=== PATIENT | male | born 1960 | race African-American/Black ===

== ENCOUNTER 2020-02-24 14:08 | Observation (INO) | payer OTHER ==
[~2020-02-24 14:08] MED LIST: Iopamidol-370 76% 500 ML 1 ML ONE
[2020-02-24 14:45] LABS: Mean Corpuscular HGB CONC 34.1 g/dL (32.0-36.0); Mean Corpuscular Hemoglobin 32.7 pg (27.0-31.0); Mean Corpuscular Volume 95.9 fL (78.0-98.0); Mean Platelet Volume 6.5 fL (7.4-10.4); Platelet Count 208 thou/uL (130-400); RBC Distribution Width 12.1 % (11.5-14.5); Red Blood Cell (RBC) Count 3.06 mill/uL (4.70-6.10); White Blood Cell (WBC) Count 6.5 thou/uL (4.8-10.8)
--- NOTE | 2020-02-24 15:02 | RAD ---
PORTABLE CHEST 1 VIEW: DATE: 01/24/2020. TIME: 2:17 PM. HISTORY: Chest pain. COMPARISON: 03/23/2017. FINDINGS: The heart size is normal. The lungs are expanded without focal areas of consolidation, pneumothorace s, or pleural effusions. IMPRESSION: No acute process. POS: [facility]
[2020-02-24 15:06] LABS: ALT (SGPT) 20 U/L (8-55); AST (SGOT) 32 U/L (5-34); Albumin 3.7 g/dL (3.5-5.0); Alkaline Phosphatase 96 U/L (40-110); Anion Gap 15 mmol/L (10-20); BUN (Urea Nitrogen) 9 mg/dL (8.4-25.7); Bilirubin, Total 0.4 mg/dL (0.2-1.2); Calc. Creatinine Clearance 0 mL/min (70-130); Carbon Dioxide 21 mmol/L (22-29); Chloride 91 mmol/L (98-107); Estimated GFR-MDRD 79; Globulin 2.8 g/dL (2.4-3.5); Glucose 77 mg/dL (70-105); Potassium 4.1 mmol/L (3.5-5.1); Protein, Total 6.5 g/dL (6.0-8.3); Sodium 123 mmol/L (136-145)
[2020-02-24 15:10] LABS: Band 7 % (5-11); Hypochromia SLIGHT = 6-15 cells (100X) (0-5/hpf); Lymphocytes 15 % (21-51); MDiff Complete? YES; Monocytes 12 % (0-10); Neutrophil 58 % (42-75); Platelet Morphology Comment Appears Adequate; Polychromasia SLIGHT = 2-3 cells (100X) (0-2/hpf); Reactive Lymphocytes 8 % (0-10)
[2020-02-24 15:12] LABS: Bacteria/HPF None Seen HPF (None Seen); Bilirubin Negative (Negative); Blood, Urine Negative (Negative); Clarity Clear (Clear); Glucose, Urine (Dipstick) Normal (Negative); Ketone, Urine Negative (Negative); Leukocyte 25 Leu/uL (Negative); Nitrite Negative (Negative); Protein, Urine (Dipstick) Negative (Neg-Trace); RBC/HPF None Seen HPF (0-3); Specific Gravity, Urine 1.005 (1.002-1.036); Squamous Epithelial 0-3 HPF (0-3); Urobilinogen Normal mg/dL (Less than 2)
--- NOTE | 2020-02-24 15:34 | CT ---
CT head noncontrast HISTORY: Orthostatic hypotension. Dizziness. COMPARISON: 04/17/2009. FINDINGS: There is no evidence of acute intracranial hemorrhage or infarct. Mild chronic ischemic sma ll vessel disease throughout the periventricular white matter. There is no mass effect or shift of midline structures. Visualized paranasal sinuses remain well aera bety. IMPRESSION : No acute intracranial abnormalities are demonstrated.
--- NOTE | 2020-02-24 17:52 | PDOC.FPRHP ---
- History of Present Illness Chief Complaint: Presyncope History of Present Illness: Pt is a 59 yo M with HTN, HLD, and Hx of seizures for 8 years here with episode of pre-syncope when at the park. Pt reports got dizzy and almost passed out. Pt friend told him to come in because they saw his eyes roll back in his head. Pt reports drinking plenty of water. Per ER report they stated pt actually went unconcious for a brief moment. Pt reports blurry vision before the episode. Denies any headaches. Denies anybody told him he was convulsing. Denies any loss of urine or bowel movement. Reports feeling heart racing during the episode. Denies any SOB Pt has had seizures for 8 years and last seizure was 4 years ago. Pt reports blurry vision before the episdoe. Recently was started on tinazidine. He says he is taking Dilantin 100 mg TID. ED Course: In the ED, he was given 1g of Dilantin and 1L NS. His labs were remarkable for a NA of 123. - Allergies/Adverse Reactions Allergies Allergy/AdvReac Type Severity Reaction Status Date / Time No Known Drug Allergies Allergy Verified 02/24/20 20:09 - Home Medications Medication Instructions Recorded Confirmed Type Aspirin [Ecotrin Low Strength] 81 mg PO DAILY 03/23/17 02/24/20 History Phenytoin Sodium Extended 100 mg PO TID 03/23/17 02/24/20 History [Dilantin] Amlodipine [Norvasc] 10 mg PO DAILY 02/24/20 02/24/20 History Atorvastatin Calcium [Lipitor] 20 mg PO DAILY 02/24/20 02/24/20 History Gabapentin [Neurontin] 600 mg PO TID 02/24/20 02/24/20 History Hydrochlorothiazide 12.5 mg PO DAILY 02/24/20 02/24/20 History Lisinopril [Zestril] 20 mg PO DAILY 02/24/20 02/24/20 History Metoprolol Tartrate 25 mg PO DAILY 02/24/20 02/24/20 History tiZANidine HCl [Tizanidine HCl] 4 mg PO TID PRN 02/24/20 02/24/20 History Comments: The meds above are not correct. I have reviewed the medications from his clinic chart and that he had with him so below is the accurate home list. Phenytoin 100mg TID, Amlodipine 10 mg daily, HCTZ 12.5 mg daily, Lisinopril 20 mg daily, Atorvastatin 20 mg, Gabapentin 300 mg TID, Metoprolol 25 mg daily, ASA 81 mg daily. Just got tizanidine 4 mg and started taking. - History PMHx: hx seizures, HTN, HLD, Anemia, Spondylosis w/o myelopathy, lumbar region, PSH: R. knee surgery Allergies: NKDA FH: Sisters- Sickle cell disease, SH: denies smoking, drinks 2 32 oz a day, denies recreational drugs - Review of Systems General: denies: fever/chills, weight/appetite/sleep changes, night sweats Eyes: reports: vision changes (blurry vision with syncopy that resolved) ENT: denies: nasal congestion, rhinorrhea Respiratory: denies: cough, congestion, shortness of breath Cardiovascular: denies: chest pain, edema Gastrointestinal: denies: nausea, vomiting, diarrhea, constipation, abdominal pain Genitourinary: denies: dysuria Skin: denies: rashes, lesions Musculoskeletal: denies: pain, tenderness Neurological: reports: syncope. denies: numbness, seizure, weakness - Vital signs BP: 148/82 HR: 69 RR: 18 Tmax: 98.6 Pox: 100% on RA Wt: 74.8 kg - Physical Exam Constitutional: NAD, awake, alert and oriented HEENT: normocephalic and atraumatic, conjunctiva clear, no scleral icterus, MMM -HEENT: Significant horizontal nystagmus most prominent on the right. There was some subtle vertical nystagmus. Neck: supple, no LAD Heart: RRR, normal S1/S2, no murmurs/rubs/gallops, pulses present, no edema Lungs: CTAB, no respiratory distress, good air movement, no rales/rhonchi, no wheezing, no retractions Abdomen: soft, non-tender, bowel sounds present Musculoskeletal: normal structure, normal tone Neurological: no focal deficit, CN II-XII intact, normal sensation Skin: no rash/lesions, good turgor -Skin: Many SKs over chest and back. He has a large subcutaneous lipoma on his left upper back. Heme/Lymphatic: no unusual bruising or bleeding, no purpura, no petechia Psychiatric: normal mood and affect FMR H&P: Results - Labs Result Diagrams: 02/25/20 04:53 02/25/20 04:53 Lab results: WBC 6.5 thou/uL (4.8-10.8) 02/24/20 14:31 Hgb 10.0 g/dL (14.0-18.0) L 02/24/20 14:31 Hct 29.4 % (42.0-52.0) L 02/24/20 14:31 MCV 95.9 fL (78.0-98.0) 02/24/20 14:31 Plt Count 208 thou/uL (130-400) 02/24/20 14:31 Band Neuts % (Manual) 7 % (5-11) 02/24/20 14:31 Sodium 123 mmol/L (136-145) L 02/24/20 14:31 Potassium 4.1 mmol/L (3.5-5.1) 02/24/20 14:31 Chloride 91 mmol/L (98-107) L 02/24/20 14:31 Carbon Dioxide 21 mmol/L (22-29) L 02/24/20 14:31 BUN 9 mg/dL (8.4-25.7) 02/24/20 14:31 Creatinine 1.15 mg/dL (0.7-1.3) 02/24/20 14:31 Glucose 77 mg/dL (70-105) 02/24/20 14:31 Calcium 9.0 mg/dL (7.8-10.44) 02/24/20 14:31 Total Bilirubin 0.4 mg/dL (0.2-1.2) 02/24/20 14:31 AST 32 U/L (5-34) 02/24/20 14:31 ALT 20 U/L (8-55) 02/24/20 14:31 Alkaline Phosphatase 96 U/L (40-110) 02/24/20 14:31 Serum Total Protein 6.5 g/dL (6.0-8.3) 02/24/20 14:31 Albumin 3.7 g/dL (3.5-5.0) 02/24/20 14:31 Urine Ketones Negative mg/dL (Negative) 02/24/20 14:52 Urine Blood Negative (Negative) 02/24/20 14:52 Urine Nitrite Negative (Negative) 02/24/20 14:52 Ur Leukocyte Esterase 25 Brock/uL (Negative) 02/24/20 14:52 Urine RBC None Seen HPF (0-3) 02/24/20 14:52 Urine WBC 4-6 HPF (0-3) A 02/24/20 14:52 Ur Squamous Epith Cells 0-3 HPF (0-3) 02/24/20 14:52 Urine Bacteria None Seen HPF (None Seen) 02/24/20 14:52 - EKG Interpretation EKG: Normal sinus rhythm with biphasic T waves in V2, V3 - Radiology Interpretation Chest x-ray Status: image reviewed by me, report reviewed by me Additional comment: No acute process CT scan - head Status: image reviewed by me, report reviewed by me Additional comment: No acute intracranial abnormalities are demonstrated FMR H&P: A/P - Plan Pt is a 59 yo M with HTN, HLD, and Hx of seizures for 8 years here with episode of pre-syncope when [place] the park. 1. Syncopy vs. Seizure No biting his tongue or bowel/bladder incontinence * Prolactin ordered * Orthostatics ordered * MRI ordered due to horizontal nystagmus * CTA of neck ordered to check for stenosis * ECHO ordered due to hx of HTN may be causing vasovagal symptoms 2. Hx of Seizures Pt states he is taking his dilantin 100 mg TID * Dilatin level < 1.8 * Given 1g of Dilantin in the ED * Will continue home dilatin * Consider increasing 3. Stroke R/o Pt had nystagmus noted above. Pt had vision changes prior to syncopal episode No other residual focal neuro defecit noted * MRI and CTA ordered. * Increased Atorvastatin dose to 40 mg * Neuro consulted 4. Chest Pain Trop: 0.011 and reported heart beating fast after episode. * Echo ordered * Will trend trops * Stress test tomorrow 5. HTN Continue home meds: Amlodipine 10 mg daily, HCTZ 12.5 mg daily, Lisinopril 20 mg daily, Metoprolol 25 mg daily, ASA 81 mg daily * May have some HF will correlate with ECHO 6. HLD Continue home meds:Atorvastatin 20 mg Code Status: Full Diet: HHLSo > NPO Midnight IVF: SL DVT PPx: Lovenox GI PPx: None PCP: CATALINA Harmon Dispo: Admit to stroke obs for r/o of stroke vs. syncopy and to work up chest pain. FMR H&P: Upper Level - Pertinent history I was present with the journalism internship. I scribed the above document. I made edits above as needed. See above for details. Pt reported to us during HPI of more pre- syncopal episode. But reviewed ER hx and what was reported to them appears to be more of syncopal episode. Reported eyes rolled back in head and lost conciousness for a brief moment. - Pertinent findings Pt had horizontal and maybe some vertical nystagmus noted on H-eye test. Otherwise CN 2-12 were grossly normal. strength was 5/5 in upper and lower extremities. No other gross focal neuro defecit noted. Cardio: RRR, no murmurs or gallops Resp: CTA-B, no wheezes or crackles - Plan Date/Time: 02/24/20 1752 I, Nathaniel Peñaloza, PGY-3 have evaluated this patient and agree with findings/ plan as outlined by journalism internship resident. Pertinent changes/additions are listed here. I reviewed and made edits to the above plan as needed. See above for details. At this time we are adimitiing pt for syncope workup with possible concern for stroke and chest pain r/o. Pt had nystagmus noted on neuro exam. Pt had brief loss of conciousness with reported chest pain afterwords. Pt has seizure hx too with low level of his phenytoin. Will want to adjust dosage. See above for detailed plan. Addendum - Attending - Attending Attestation Date/Time: 02/25/20 0647 I personally evaluated the patient and discussed the management with Dr. Constantino Stover on 02/24/2020 I agree with the History, Examination, Assessment and Plan documented above with any addition or exceptions noted below- 59 yo M with HTN, HLD, and seizure disorder for 8 years presents with episode of pre-syncope when at the park. Pt reports got dizzy and almost passed out. Pt friend told him to come in because they saw his eyes roll back in his head. Pt reports drinking plenty of water. Per ER report they stated pt actually went unconcious for a brief moment. Pt reports blurry vision before the episode. Denies any headaches. Denies anybody told him he was convulsing. Denies any loss of urine or bowel movement. Reports feeling heart racing during the episode. Denies any SOB or CP. PMH/PSH/Meds/SH reviewed and agree with resident's documentation. Afebrile BP135/63 P67 R18 Exam repeated by me and agree with resident's documentation. Labs: WBC=6.5, H/H= 10/28.4, Wpb=904, Um=758, K=4.1, Cl=91, CO2=21, BUN/Cr=9/1.15, Gluc=77 dilantin <1.8, AST/ALT=32/20. A/P: 1) Near-syncope/syncope - Place in obs. Will check orthostatic vitals. Plan to evaluate echo and possible stress test. 2) Mild hyponatremia - will check urine osm, urine Na and serum osm. Recheck basmet in AM. 3) Seizure d/o- subtherapeutic on dilantin; loaded in ER; restart on home dose.
[2020-02-24] MEDS ORDERED: Acetaminophen 650 MG Suppository PR PRN (18:17)
[2020-02-24] MEDS ORDERED: Ondansetron ODT 4 MG TAB PO PRN (18:17)
[2020-02-24] MEDS ORDERED: Calcium Carbonate 500 MG ChewTAB PO PRN (18:17)
[2020-02-24] MEDS ORDERED: Ondansetron PF 4 MG/2 ML Vial IVP PRN (18:17)
[2020-02-24] MEDS ORDERED: Acetaminophen 325 MG TAB PO PRN (18:17)
[2020-02-24] MEDS ORDERED: Enoxaparin Sodium 40 MG/0.4 ML SYRINGE SC SCH (18:45)
[2020-02-24 19:03] LABS: Troponin I 0.013 ng/mL (< 0.028)
[2020-02-24 19:22] VITALS: BMI 23.6
[2020-02-24] MEDS: Atorvastatin Calcium 40 MG TAB PO SCH (21:29)
[2020-02-24 22:01] LABS: Troponin I 0.012 ng/mL (< 0.028)
--- NOTE | 2020-02-24 22:03 | CT ---
CT ANGIOGRAM HEAD AND NECK: 02/24/20 COMPARISON: None. HISTORY: Lightheaded. TECHNIQUE: Axial CT imaging at 1.25 mm intervals obtained from the vertex through the lung apices with IV contra st using CT angiogram protocol. Coronal and sagittal 3D reformatted imaging obtained. FINDINGS: The visualized lung apices are unremarkable. The paranasal sinuses and mastoid air cells are grossly unremarkable. Orbits/globes appear normal. Th e retroantral fat and parapharyngeal fat appears clear bilaterally. The parotid glands and submandibu lar glands appear grossly unremarkable bilaterally. The tonsillar pillars, epiglottis and pre-epiglottic fat, hyoid bone, thyroid cartilage, cricoid cart ilage, level of the glottis, and thyroid gland demonstrate no acute findings. The origin of the innominate artery, left common carotid artery, left subclavian artery, right common carotid artery, right subclavian artery and bilateral vertebral arteries appears unremarkable. Bilateral vertebral arteries appear grossly unremarkable. On the basis of NASCET criteria, there is no hemodynamically significant stenosis seen involving the common carotid artery, or the internal carotid artery on either size. There is partially calcified at herosclerotic plaque involving the distal CCA and proximal ICA bilaterally. The basilar artery and its branches are patent. No saccular aneurysm, high grade stenosis or vascular occlusion is seen involving the posterior circulation. The A1 segment, the M1 segment, the MCA bifurcation, and the ICA bifurcation appears unremarkable moses aterally. Distal MCA branches and distal BREANN branches appear grossly unremarkable. There is no saccul ar aneurysm, high grade stenosis or vascular occlusion seen involving the anterior circulation. Review of the osseous structures demonstrate no worrisome lytic or blastic bone lesion. There is mult ilevel cervical spine disc space narrowing with anterior osteophyte formation and bilateral facet hyp ertrophy. IMPRESSION: Numerous incidental findings as above. No hemodynamically significant stenosis involving the arterial structures of the neck on the basis of NASCET criteria. No saccular aneurysm, high grade stenosis or vascular occlusion of the intracranial arterial structures seen.
[2020-02-25 00:44] LABS: Amphetamine Not Detected (NotDetected); Barbiturates Screen Detected (NotDetected); Benzodiazepine Screen Not Detected (NotDetected); Cocaine Metabolite Screen Not Detected (NotDetected); Medtox Control Line Valid? VALID (VALID); Medtox Reader # READER 4; Methadone Not Detected (NotDetected); Methamphetamine Not Detected (NotDetected); Opiate Screen Not Detected (NotDetected); Oxycodone Screen Not Detected (NotDetected); Phencyclidine (PCP) Not Detected (NotDetected); THC/Cannabinoid Screen Not Detected (NotDetected); Tricyclic Screen Not Detected (NotDetected)
--- NOTE | 2020-02-25 05:28 | PDOC.FM ---
- Subjective Subjective: Patient doing well this morning. Denies chest pain. Denies feelings of light- headedness. Discussed plans of stress test and further imaging today, patient agreeable. - Objective Vital Signs & Weight: Vital Signs (12 hours) Temp Pulse Resp BP Pulse Ox 02/25/20 03:54 98.8 F 67 18 135/63 97 02/24/20 23:54 98.1 F 64 18 129/62 100 02/24/20 18:45 98.4 F 71 18 157/71 H 100 Weight Weight 76.975 kg Result Diagrams: 02/25/20 04:53 02/25/20 04:53 Phys Exam - Physical Examination Constitutional: NAD HEENT: moist MMs vertical nystagmus Neck: supple, full ROM Respiratory: no wheezing, clear to auscultation bilateral Cardiovascular: RRR, no significant murmur Gastrointestinal: soft, non-tender Musculoskeletal: no edema Neurological: normal sensation, moves all 4 limbs Psychiatric: normal affect, A&O x 3 Skin: no rash, normal turgor Dx/Plan (1) Chest pain Code(s): R07.9 - CHEST PAIN, UNSPECIFIED Status: Acute (2) Hyperlipidemia Code(s): E78.5 - HYPERLIPIDEMIA, UNSPECIFIED Status: Acute (3) Anemia Code(s): D64.9 - ANEMIA, UNSPECIFIED Status: Chronic Qualifiers: Anemia type: unspecified type Qualified Code(s): D64.9 - Anemia, unspecified (4) Epilepsy Code(s): G40.909 - EPILEPSY, UNSP, NOT INTRACTABLE, WITHOUT STATUS EPILEPTICUS Status: Chronic (5) Hypertension Code(s): I10 - ESSENTIAL (PRIMARY) HYPERTENSION Status: Chronic Qualifiers: Hypertension type: essential hypertension Qualified Code(s): I10 - Essential (primary) hypertension - Plan Plan: Pt is a 59 yo M with HTN, HLD, and Hx of seizures for 8 years here with episode of pre-syncope when at the park. #Syncope vs. Seizure -No biting his tongue or bowel/bladder incontinence -Orthostatics ordered -MRI pending -CTA of neck neg for significant stenosis -Echo pending #Hx of Seizures -Pt states he is taking his dilantin 100 mg TID -Dilatin level < 1.8 -Given 1g of Dilantin in the ED -Will continue home dilatin -Consider increasing, neuro consulted, appreciate recs #Stroke R/o -Pt had nystagmus prior to syncopal episode -No other residual focal neuro defecits -MRI pending -CTA neg -Atorvastatin increased to 40 mg -Neuro consulted, appreciate recs #Chest Pain -Troponins neg x3 -Patient denies chest pain this am -Echo pending -Stress test today #HTN -holding home meds while r/o stroke -Home meds: Amlodipine 10 mg daily, HCTZ 12.5 mg daily, Lisinopril 20 mg daily, Metoprolol 25 mg daily, ASA 81 mg daily -echo pending #HLD -increase atorvastatin to 40mg Code Status: Full Diet: NPO for stress test IVF: SL DVT PPx: Lovenox GI PPx: None PCP: CATALINA Harmon Dispo: Admitted to stroke obs for r/o of stroke vs. syncope and to work up chest pain. Neurology consulted, appreciate recs Addendum - Attending - Attending Attestation Date/Time: 02/25/20 4269 I personally evaluated the patient and discussed the management with Dr. Murphy. I agree with the History, Examination, Assessment and Plan documented above with any addition or exceptions noted below. NM stress, MRI, neuro recs. Likely d/c this afternoon
[2020-02-25 06:14] LABS: ALT (SGPT) 16 U/L (8-55); AST (SGOT) 24 U/L (5-34); Albumin 3.6 g/dL (3.5-5.0); Alkaline Phosphatase 86 U/L (40-110); Anion Gap 13 mmol/L (10-20); BUN (Urea Nitrogen) 9 mg/dL (8.4-25.7); Bilirubin, Total 0.2 mg/dL (0.2-1.2); Calc. Creatinine Clearance 89 mL/min (70-130); Calcium 8.7 mg/dL (7.8-10.44); Carbon Dioxide 24 mmol/L (22-29); Chloride 100 mmol/L (98-107); Cholesterol 210 mg/dl (< 200 Desired); Estimated GFR-MDRD Greater than 90; Globulin 2.9 g/dL (2.4-3.5); Glucose 70 mg/dL (70-105); HDL Cholesterol 105 mg/dL (>60 Neg Risk); LDL Cholesterol, Calculated 96 mg/dL; Potassium 4.4 mmol/L (3.5-5.1); Protein, Total 6.5 g/dL (6.0-8.3); Sodium 133 mmol/L (136-145); Triglycerides 43 mg/dL (Less than 150)
[2020-02-25 06:28] LABS: Hemoglobin 10.8 g/dL (14.0-18.0); Mean Corpuscular HGB CONC 33.7 g/dL (32.0-36.0); Mean Corpuscular Hemoglobin 32.6 pg (27.0-31.0); Mean Corpuscular Volume 96.7 fL (78.0-98.0); Mean Platelet Volume 6.9 fL (7.4-10.4); Platelet Count 216 thou/uL (130-400); RBC Distribution Width 12.2 % (11.5-14.5); Red Blood Cell (RBC) Count 3.31 mill/uL (4.70-6.10); White Blood Cell (WBC) Count 4.9 thou/uL (4.8-10.8)
[2020-02-25 06:54] LABS: Eosinophils 1 % (0-10); Lymphocytes 35 % (21-51); MDiff Complete? YES; Monocytes 11 % (0-10); Neutrophil 51 % (42-75); Reactive Lymphocytes 2 % (0-10)
[2020-02-25] MEDS: Aspirin 81 mg Enteric Coated Tablet PO SCH (08:51)
[2020-02-25] MEDS: Enoxaparin Sodium 40 MG/0.4 ML SYRINGE SC SCH (08:51)
[2020-02-25] MEDS ORDERED: ADENOSINE 60 MG/20 ML VIAL ONE (09:58)
[2020-02-25] MEDS ORDERED: Magnevist 469MG/ML 20 ML VIAL ONE (10:57)
--- NOTE | 2020-02-25 12:56 | CON ---
NEUROLOGY CONSULTATION DATE OF CONSULTATION: 02/25/2020 REASON FOR CONSULTATION: Episode of presyncope. HISTORY OF PRESENT ILLNESS: Mr. Viera is a 59-year-old pleasant male with a history significant for hypertension, hyperlipidemia, and seizure disorder on Dilantin for the last eight years, presented with an episode of presyncope. According to the patient, he was at the park and went to the restroom and at that time he became dizzy and his eyes rolled backward and passed out for a brief movement. The patient denies any focal weakness, focal paresthesias, nausea, vomiting, headache, chest pain, dizziness, antibiotic vertigo, loss of vision, tinnitus, any abnormal voluntary movement, seizure activity, bowel or bladder incontinence associated with the episode. The patient has been compliant on Dilantin monotherapy and his last seizure was four years ago. He takes Dilantin 100 mg three times daily. In the emergency room, Dilantin level was checked, which was subtherapeutic, so he was given a load of 1 g of Dilantin. The rest of the labs were unremarkable except for hyponatremia 123. - Review of Systems General: denies: fever/chills, weight/appetite/sleep changes, night sweats Eyes: reports: vision changes ENT: denies: nasal congestion, rhinorrhea Respiratory: denies: cough, congestion, shortness of breath Cardiovascular: denies: chest pain, edema Gastrointestinal: denies: nausea, vomiting, diarrhea, constipation, abdominal pain Genitourinary: denies: dysuria Skin: denies: rashes, lesions Musculoskeletal: denies: pain, tenderness Neurological: reports: syncope. denies: numbness, seizure, weakness PAST MEDICAL HISTORY: Seizure disorder, hypertension, hyperlipidemia, anemia, spondylosis. PAST SURGICAL HISTORY: Right knee surgery. FAMILY HISTORY: The sister has sickle cell disease. SOCIAL HISTORY: Denies smoking, drinks 32 ounce of alcohol a day. Denies illegal drug use. Allergies/Adverse Reactions Allergies Allergy/AdvReac Type Severity Reaction Status Date / Time No Known Drug Allergies Allergy Verified 02/24/20 20:09 - Home Medications Medication Instructions Recorded Confirmed Type Aspirin [Ecotrin Low Strength] 81 mg PO DAILY 03/23/17 02/24/20 History Phenytoin Sodium Extended 100 mg PO TID 03/23/17 02/24/20 History [Dilantin] Amlodipine [Norvasc] 10 mg PO DAILY 02/24/20 02/24/20 History Atorvastatin Calcium [Lipitor] 20 mg PO DAILY 02/24/20 02/24/20 History Gabapentin [Neurontin] 600 mg PO TID 02/24/20 02/24/20 History Hydrochlorothiazide 12.5 mg PO DAILY 02/24/20 02/24/20 History Lisinopril [Zestril] 20 mg PO DAILY 02/24/20 02/24/20 History Metoprolol Tartrate 25 mg PO DAILY 02/24/20 02/24/20 History tiZANidine HCl [Tizanidine HCl] 4 mg PO TID PRN 02/24/20 02/24/20 History - Objective Vital Signs & Weight: Vital Signs (12 hours) Temp Pulse Resp BP Pulse Ox 02/25/20 03:54 98.8 F 67 18 135/63 97 02/24/20 23:54 98.1 F 64 18 129/62 100 02/24/20 18:45 98.4 F 71 18 157/71 H 100 Weight Weight 76.975 kg - Physical Exam Constitutional: NAD, awake, alert and oriented HEENT: normocephalic and atraumatic, conjunctiva clear, no scleral icterus, MMM -HEENT: Significant horizontal nystagmus most prominent on the right. There was some subtle vertical nystagmus. Neck: supple, no LAD Heart: RRR, normal S1/S2, no murmurs/rubs/gallops, pulses present, no edema Lungs: CTAB, no respiratory distress, good air movement, no rales/rhonchi, no wheezing, no retractions Abdomen: soft, non-tender, bowel sounds present Musculoskeletal: normal structure, normal tone Neurological: Mental status; the patient is alert and oriented to person, place , and time. Speech is clear. Motor, muscle tone and bulk are normal. Strength 5/5 bilaterally. Cranial nerves 2 through 12 intact. Sensory intact. Cerebellar, finger-nose testing intact. Gait deferred due to patient's safety reasons. Reflexes symmetric bilaterally. 02/25/20 04:53 Lab results: WBC 6.5 thou/uL (4.8-10.8) 02/24/20 14:31 Hgb 10.0 g/dL (14.0-18.0) L 02/24/20 14:31 Hct 29.4 % (42.0-52.0) L 02/24/20 14:31 MCV 95.9 fL (78.0-98.0) 02/24/20 14:31 Plt Count 208 thou/uL (130-400) 02/24/20 14:31 Band Neuts % (Manual) 7 % (5-11) 02/24/20 14:31 Sodium 123 mmol/L (136-145) L 02/24/20 14:31 Potassium 4.1 mmol/L (3.5-5.1) 02/24/20 14:31 Chloride 91 mmol/L (98-107) L 02/24/20 14:31 Carbon Dioxide 21 mmol/L (22-29) L 02/24/20 14:31 BUN 9 mg/dL (8.4-25.7) 02/24/20 14:31 Creatinine 1.15 mg/dL (0.7-1.3) 02/24/20 14:31 Glucose 77 mg/dL (70-105) 02/24/20 14:31 Calcium 9.0 mg/dL (7.8-10.44) 02/24/20 14:31 Total Bilirubin 0.4 mg/dL (0.2-1.2) 02/24/20 14:31 AST 32 U/L (5-34) 02/24/20 14:31 ALT 20 U/L (8-55) 02/24/20 14:31 Alkaline Phosphatase 96 U/L (40-110) 02/24/20 14:31 Serum Total Protein 6.5 g/dL (6.0-8.3) 02/24/20 14:31 Albumin 3.7 g/dL (3.5-5.0) 02/24/20 14:31 Urine Ketones Negative mg/dL (Negative) 02/24/20 14:52 Urine Blood Negative (Negative) 02/24/20 14:52 Urine Nitrite Negative (Negative) 02/24/20 14:52 Ur Leukocyte Esterase 25 Brock/uL (Negative) 02/24/20 14:52 Urine RBC None Seen HPF (0-3) 02/24/20 14:52 Urine WBC 4-6 HPF (0-3) A 02/24/20 14:52 Ur Squamous Epith Cells 0-3 HPF (0-3) 02/24/20 14:52 Urine Bacteria None Seen HPF (None Seen) 02/24/20 14:52 - EKG Interpretation EKG: Normal sinus rhythm with biphasic T waves in V2, V3 - Radiology Interpretation Chest x-ray Status: image reviewed by me, report reviewed by me Additional comment: No acute process CT scan - head Status: image reviewed by me, report reviewed by me Additional comment: No acute intracranial abnormalities are demonstrated ASSESSMENT AND PLAN: Mr. Viera is a 59-year-old male with hypertension, hyperlipidemia, seizure disorder, presented with an episode of brief passing out. The history does not seem to be consistent with seizure; however, his Dilantin level is subtherapeutic. According to the patient, he has been compliant with medicine. Consider changing dose of Dilantin from 100 mg three times a day to 330 mg at night to ensure compliance, the increment of 30 mg was done since Dilantin has a nonlinear kinetics and there is a concern about Dilantin toxicity. Consider taking supplemental calcium and vitamin D because of risk for osteoporosis associated with Dilantin. Recommend MRI to rule out acute intracranial pathology. Recommend CTA of the neck and 2D echo to rule out cardiac cause. Monitor blood pressure and strict control of blood glucose, check lipid panel, check fasting lipid profile, TSH, and hemoglobin A1c. Stress test completed. We will follow up on the results. Neuro checks every 4 hours. Continue home medications. Continue aspirin and statin for secondary stroke prevention. Recommend increasing atorvastatin to 40 mg. Continue medical management per primary team. We will continue to follow. Thank you for the consult. Job ID: [id number] WANG
--- NOTE | 2020-02-25 13:40 | NM ---
MYOCARDIAL PERFUSION SCAN WITH SPECT IMAGIN02/25/20 HISTORY: Chest pain. Examination is performed using 33 millicuries of 99m technetium Sestamibi on the stress and 10.3 mill icuries on the resting images. This shows an area of ischemic change involving the anterior wall near the apex. Wall motion: Symmetric contractility to the ventricles noted. Left ventricular ejection fraction: Calculated left ventricular ejection fraction is 58%. IMPRESSION: Area of some mild ischemic change involving the anterior wall near the apex. POS: [facility]
[2020-02-25] MEDS: Atorvastatin Calcium 40 MG TAB PO SCH (20:58)
--- NOTE | 2020-02-26 06:05 | PDOC.FM ---
- Subjective Subjective: Patient doing well this morning. Denies chest pain. Discussed plans of talking with cardiology today and changing dilating regimen to 330mg qhs. Patient agreeable with plan of care. - Objective Vital Signs & Weight: Vital Signs (12 hours) Temp Pulse Resp BP Pulse Ox 02/26/20 03:36 98.3 F 63 20 126/64 99 02/25/20 23:35 98.3 F 63 20 154/67 H 100 02/25/20 20:52 98.4 F 66 16 119/60 99 Weight Weight 76.975 kg I&O: 02/24/20 02/25/20 02/26/20 06:59 06:59 06:59 Intake Total 250 240 Output Total 1750 1850 Balance -1500 -1610 Result Diagrams: 02/25/20 04:53 02/26/20 06:07 Phys Exam - Physical Examination Constitutional: NAD HEENT: moist MMs, sclera anicteric Neck: supple, full ROM Respiratory: no wheezing, clear to auscultation bilateral Cardiovascular: RRR, no significant murmur Gastrointestinal: soft, non-tender Musculoskeletal: no edema, pulses present Neurological: non-focal, moves all 4 limbs Psychiatric: normal affect, A&O x 3 Dx/Plan (1) Chest pain Code(s): R07.9 - CHEST PAIN, UNSPECIFIED Status: Acute (2) Hyperlipidemia Code(s): E78.5 - HYPERLIPIDEMIA, UNSPECIFIED Status: Acute (3) Anemia Code(s): D64.9 - ANEMIA, UNSPECIFIED Status: Chronic Qualifiers: Anemia type: unspecified type Qualified Code(s): D64.9 - Anemia, unspecified (4) Epilepsy Code(s): G40.909 - EPILEPSY, UNSP, NOT INTRACTABLE, WITHOUT STATUS EPILEPTICUS Status: Chronic (5) Hypertension Code(s): I10 - ESSENTIAL (PRIMARY) HYPERTENSION Status: Chronic Qualifiers: Hypertension type: essential hypertension Qualified Code(s): I10 - Essential (primary) hypertension - Plan Plan: Pt is a 59 yo M with HTN, HLD, and Hx of seizures for 8 years here with episode of pre[place]syncope [place] the park. #Syncope vs. Seizure -No biting his tongue or bowel/bladder incontinence -Orthostatics ordered: positive -MRI pending -CTA of neck neg for significant stenosis -Echo pending #Hx of Seizures -Pt states he is taking his dilantin 100 mg TID -Dilatin level < 1.8 -Given 1g of Dilantin in the ED -Home dilatin increased from 100mg TID to 330mg qhs -neuro consulted, appreciate recs #Stroke R/o -Pt had nystagmus prior to syncopal episode -No other residual focal neuro defecits -MRI pending -CTA neg -Atorvastatin increased to 40 mg -Neuro consulted, appreciate recs #Chest Pain -Troponins neg x3 -Patient denies chest pain this am -Echo pending -Stress test: mild ischemic changes anterior wall near the apex -cardiology consult today #HTN -holding home meds while r/o stroke -Home meds: Amlodipine 10 mg daily, HCTZ 12.5 mg daily, Lisinopril 20 mg daily, Metoprolol 25 mg daily, ASA 81 mg daily -echo pending #HLD -increase atorvastatin to 40mg Diet: NPO for cards consult IVF: SL DVT PPx: Lovenox GI PPx: None PCP: CATALINA Harmon Code Status: Full Dispo: Admitted to stroke obs for r/o of stroke. Neurology consulted, appreciate recs. Cardiology consult today for ischemic changes seen on stress test, appreciate recs. Addendum - Attending - Attending Attestation Date/Time: 02/26/20 3046 I personally evaluated the patient and discussed the management with Dr. Murphy. I agree with the History, Examination, Assessment and Plan documented above with any addition or exceptions noted below. Reversible ischemia on NM Stress. MRI pending. Cards to evaluate today. Dispo pending recs and MRI report.
[2020-02-26 06:28] LABS: Anion Gap 11 mmol/L (10-20); BUN (Urea Nitrogen) 10 mg/dL (8.4-25.7); Calc. Creatinine Clearance 79 mL/min (70-130); Carbon Dioxide 26 mmol/L (22-29); Chloride 100 mmol/L (98-107); Estimated GFR-MDRD 82; Glucose 86 mg/dL (70-105); Potassium 4.2 mmol/L (3.5-5.1); Sodium 133 mmol/L (136-145)
[2020-02-26 06:32] LABS: Hemoglobin A1c 4.6 % (4.0-6.0)
[2020-02-26] MEDS: Aspirin 81 mg Enteric Coated Tablet PO SCH (10:49)
[2020-02-26] MEDS: Enoxaparin Sodium 40 MG/0.4 ML SYRINGE SC SCH (10:49)
--- NOTE | 2020-02-26 12:56 | MRI ---
MRI BRAIN WITH AND WITHOUT CONTRAST: INDICATIONS: Question CVA. History of prior seizures. CORRELATION: CT head from 02/24/20, which showed no acute process. FINDINGS: The ventricles have normal size and position. There is no evidence of restricted diffusion. There is no evidence of mass or edema. There are white matter hyperintensities seen on the FLAIR sequence in the periventricular white matte r, most consistent with mild chronic ischemic white matter change. No abnormal enhancement. The hippocampal formations are symmetric. Intracranial internal carotid arteries, cerebral arteries and basilar arteries show flow voids. The d ural venous sinuses appear patent. The paranasal sinuses appear clear with very mild mucosal edema in the maxillary sinuses. There is a focus of high T2 signal seen in the petrous on left, medially, suggesting mucosal thickeni ng in a petrous air cell, however this focus of signal abnormality, measuring approximately 1.3 cm, d oes appear to show enhancement on the post contrast imaging and therefore a soft tissue mass cannot b e excluded. This region was not imaged on recent CT through the base of skull on 02/24/20. No other abnormality identified. IMPRESSION: 1. No acute intracranial process. 2. Mild chronic ischemic white matter changes noted. 3. Question area of high T2 signal in the superior left petrous medially noted adjacent to the clivu s on the left. This probably represents mucosal edema in a petrous air cell. This signal abnormality does appear to show enhancement on post contrast images. CT sinuses is recommended to assess this reg ion on CT scan. POS: AGW
--- NOTE | 2020-02-26 19:59 | CON ---
DATE OF CONSULTATION: HISTORY OF PRESENT ILLNESS: Lauri Viera is a 59-year-old black male, admitted with a near-syncopal event. He was first evaluated by Dr. House in 02/2016 for episode of chest discomfort. This was after being hospitalized twice with chest pain. He underwent cardiac catheterization, which revealed ejection fraction of 50% to 55% with normal coronary arteries. He is continued to be followed by Dr. House for moderate aortic insufficiency. On 01/23/2020 at his last visit via telephone due to COVID, he was asymptomatic at that time. His last echocardiogram in the office was 11/30/2019, which revealed ejection fraction of 55% to 60% with evidence for diastolic dysfunction, moderate aortic insufficiency, moderate mitral regurgitation, and mild tricuspid regurgitation. Mr. Viera denies any problems with chest discomfort or shortness of breath. He was admitted 2 days ago with an episode of presyncope. He became dizzy, fell to his knees, but apparently never was totally unconscious and never did fall completely to the ground. He had no tonic-clonic movements or bowel or urine incontinence. He does have history of seizure disorder. His EKG showed inverted T-waves V1-V3 with biphasic T-wave in V2. In reviewing the EKGs from 2019 and 2016, this is a new finding. He underwent adenosine Cardiolite testing, which revealed mild ischemic changes involving the anterior wall near the apex. PAST MEDICAL HISTORY: 1. Seizure disorder. 2. Hypertension. 3. Asthma. 4. Hyperlipidemia. 5. 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 6.Moderate aortic insufficiency. OPERATIONS: 1. Knee surgery. 2. Hernia surgery. MEDICATIONS: 1. Amlodipine 10 mg daily. 2. Aspirin 81 daily. 3. Atorvastatin 20 nightly. 4. Neurontin 600 mg t.i.d. 5. Hydrochlorothiazide 12.5 daily. 6. Lisinopril 20 daily. 7. Metoprolol 25 daily. 8. Dilantin 100 mg t.i.d. 9. Tizanidine 4 mg t.i.d. p.r.n. ALLERGIES: NONE. SOCIAL HISTORY: He does not smoke. Drinks two 32-ounce beers a day. REVIEW OF SYSTEMS: Ten-point review of systems is unremarkable. PHYSICAL EXAMINATION: VITAL SIGNS: Blood pressure 146/65 and pulse of 61. HEENT: PERRL. NECK: Supple. CHEST: Clear. CARDIAC: S1 and S2 are normal without any S3, S4, or murmurs. ABDOMEN: Normal bowel sounds without tenderness or organomegaly. EXTREMITIES: No clubbing, cyanosis, or edema. NEUROLOGIC: Grossly intact. SKIN: Warm and dry. IMPRESSION: 1. Episode of presyncope. From his description, it does not sound as if he became unresponsive with this. He just became dizzy and fell to his knees. 2. History of seizure disorder. 3. New EKG changes with inverted T-wave V1-V3 and a biphasic T-wave in V2 as well. He also has finding of distal anterior ischemia near the apex on Cardiolite. These are new EKG changes. 4. History of normal coronary arteries in 2016. 5. Hypertension. 6. Hyperlipidemia. 7. EtOH use. 8. History of asthma. 9. Moderate aortic insufficiency PLAN: The situation was discussed with the patient. He does have new changes on his EKG and now Cardiolite that shows anterior ischemia. Consideration will be given to repeat cardiac catheterization to further evaluate this. The patient will be seen by his usual marketing sales manager, Dr. House, in the morning. Job ID: [id number] [facility]
[2020-02-26] MEDS: Atorvastatin Calcium 40 MG TAB PO SCH (21:46)
[2020-02-26] MEDS: Gabapentin 300 MG CAP PO SCH (21:46)
--- NOTE | 2020-02-27 08:44 | PDOC.FM ---
- Subjective Subjective: Patient resting comfortably in bed this morning. Denies any complaints including no chest pain, SOB, dizziness, pre-syncope. Patient is due to have a heart cath with Dr. House this morning. - Objective MAR Reviewed: Yes Vital Signs & Weight: Vital Signs (12 hours) Temp Pulse Resp BP Pulse Ox 02/27/20 07:38 98.6 F 63 16 164/73 H 99 02/27/20 04:00 97.5 F L 74 16 131/68 98 02/27/20 00:00 98.2 F 70 18 151/71 H 99 Weight Weight 76.975 kg I&O: 02/26/20 02/27/20 02/28/20 06:59 06:59 06:59 Intake Total 240 1310 Output Total 1850 2450 100 Balance -1610 -1140 -100 Result Diagrams: 02/25/20 04:53 02/26/20 06:07 Phys Exam - Physical Examination Constitutional: NAD HEENT: moist MMs, sclera anicteric Neck: no JVD, supple, full ROM Respiratory: no wheezing, clear to auscultation bilateral Cardiovascular: RRR, no significant murmur Gastrointestinal: soft, no distention, positive bowel sounds Musculoskeletal: no edema, pulses present Neurological: normal sensation, moves all 4 limbs Psychiatric: normal affect, A&O x 3 Dx/Plan (1) Hyponatremia Code(s): E87.1 - HYPO-OSMOLALITY AND HYPONATREMIA Status: Acute (2) Seizure disorder Code(s): G40.909 - EPILEPSY, UNSP, NOT INTRACTABLE, WITHOUT STATUS EPILEPTICUS Status: Acute (3) Chest pain Code(s): R07.9 - CHEST PAIN, UNSPECIFIED Status: Acute Qualifiers: Chest pain type: chest pain due to myocardial ischemia Ischemic chest pain type: unspecified angina pectoris type Qualified Code(s): I25.9 - Chronic ischemic heart disease, unspecified (4) Anemia Code(s): D64.9 - ANEMIA, UNSPECIFIED Status: Chronic Qualifiers: Anemia type: unspecified type Qualified Code(s): D64.9 - Anemia, unspecified - Plan Plan: Pt is a 59 yo M with HTN, HLD, and Hx of seizures for 8 years here with episode of [place] the park. #Syncope vs. Seizure -No biting his tongue or bowel/bladder incontinence so low suspicion of actual seizure, however Dilantin levels not-therapeutic on admission -Orthostatics ordered: positive -MRI shows no acute findings, there is a high T2 signal in the superior left petrous medially -recommend CT sinus as outpatient -CTA of neck neg for significant stenosis -Echo shows EF 50-55%, moderate systolic anterior motion of anterior leaflet #Hx of Seizures -Pt states he is taking his home dilantin 100 mg TID -Dilatin level < 1.8 -Given 1g of Dilantin in the ED -Home dilantin increased from 100mg TID to 330mg qhs on 02/25 -Neuro consulted-Dr. Nicole, appreciate recs #CVA r/o--ruled out -Pt had nystagmus prior to syncopal episode -No other residual focal neuro defecits -MRI results as above, no acute findings -CTA neg -Atorvastatin increased to 40 mg -Neuro consulted, appreciate recs #Chest Pain -Troponins neg x3 -Patient denies chest pain this am -Echo results as above -Stress test: mild ischemic changes anterior wall near the apex -Cardiology consult-Dr. Asher, appreciate recs -will plan for cardiac cath this morning with Dr. House #HTN -holding home meds while r/o stroke -Home meds: Amlodipine 10 mg daily, HCTZ 12.5 mg daily, Lisinopril 20 mg daily, Metoprolol 25 mg daily, ASA 81 mg daily -echo results as above #HLD -increase atorvastatin to 40mg Diet: NPO for cath today IVF: SL DVT PPx: Lovenox GI PPx: None PCP: CATALINA Harmon Code Status: Full Dispo: Stable, Admitted to stroke obs for r/o of CVA. Neurology & Cardiology consulted, appreciate recs. Cardiology plans for cardiac cath today. Anticipate discharge in next 48 hours, pending results of cath. Addendum - Attending - Attending Attestation Date/Time: 02/27/20 0516 I personally evaluated the patient and discussed the management with Dr. Delgado. I agree with the History, Examination, Assessment and Plan documented above with any addition or exceptions noted below. Patient undergoing EEG this morning per Neuro recs to ensure his symptoms were not related to seizure activity. He will also be going for heart cath later today to further characterize his abnormal stress showing ischemia.
[2020-02-27] MEDS ORDERED: Hydrochlorothiazide 25 MG TAB PO SCH (09:00)
[2020-02-27] MEDS ORDERED: Atorvastatin Calcium 20 MG TAB PO SCH (09:00)
[2020-02-27] MEDS ORDERED: Metoprolol Tartrate 25 MG TAB PO SCH (09:00)
[2020-02-27] MEDS ORDERED: Lisinopril 20 MG TAB PO SCH (09:00)
[2020-02-27] MEDS ORDERED: Amlodipine 10 MG TAB PO SCH (09:00)
[2020-02-27] MEDS: Aspirin 81 mg Enteric Coated Tablet PO SCH (09:04)
[2020-02-27] MEDS: Gabapentin 300 MG CAP PO SCH ×2 (09:04→17:25)
[2020-02-27] MEDS: Enoxaparin Sodium 40 MG/0.4 ML SYRINGE SC SCH (09:14)
--- NOTE | 2020-02-27 09:57 | PRG ---
DATE OF SERVICE: 02/27/2020 SUBJECTIVE: Mr. Viera came in with near-syncope. He underwent a noninvasive stress study, was mildly abnormal. His EKG does show biphasic T-waves. I reviewed his angio performed in 2016. There was no significant coronary artery disease. Based on the recent findings, I recommend coronary angiography plus PCI. I am concerned about biphasic T-waves and abnormal stress study. I discussed in full detail Mr. Viera risks include, but not limited to the following. I discussed the procedure in full detail with the patient. The risks of the procedure were also discussed. The risks of the procedure include but are not limited to the following: , stroke, MA, need for emergency surgery, loss of limb, bleeding, and infection, as well as a reaction to the dye causing kidney failure and needing long-term dialysis. I also discussed the risks of PCI to include all of the above including coronary dissection and perforation in addition to acute stent thrombosis and restenosis. All questions about the procedure were answered. Given the above, the patient agreed to proceed with coronary angiography and possible PCI. All questions answered. Given the above, patient agreed to proceed the above procedure. There are no contraindications to drug-coated stent placement. We will proceed if needed. Job ID: [id number]
--- NOTE | 2020-02-27 12:43 | PDOC.HOSPP ---
- Subjective Encounter Date: 02/27/20 Subjective: NEUROLOGY PROGRESS NOTE No acute events overnight. - Objective Vital Signs & Weight: Vital Signs (12 hours) Temp Pulse Resp BP BP BP BP 02/27/20 11:10 98.6 F 60 16 141/63 H 02/27/20 09:09 62 16 180/84 H 127/77 138/67 02/27/20 09:04 63 02/27/20 07:38 98.6 F 63 16 164/73 H 02/27/20 04:00 97.5 F L 74 16 131/68 Pulse Ox 02/27/20 11:10 98 02/27/20 09:09 02/27/20 09:04 02/27/20 07:38 99 02/27/20 04:00 98 Weight Weight 169 lb 11.2 oz I&O: 02/26/20 02/27/20 02/28/20 06:59 06:59 06:59 Intake Total 240 1310 Output Total 1850 2450 100 Balance -1610 -1140 -100 Result Diagrams: 02/25/20 04:53 02/26/20 06:07 Radiology Reviewed by me: Yes EKG Reviewed by me: Yes Hospitalist ROS - Review of Systems Constitutional: denies: fever, chills, sweats, weakness, malaise, other Eyes: denies: pain, vision change, conjunctivae inflammation, eyelid inflammation, redness, other ENT: denies: ear pain, ear discharge, nose pain, nose discharge, nose congestion , mouth pain, mouth swelling, throat pain, throat swelling, other Cardiovascular: reports: light headedness. denies: chest pain, palpitations, orthopnea, paroxysmal noc. dyspnea, edema, other Gastrointestinal: denies: nausea, vomiting, abdominal pain, diarrhea, constipation, melena, hematochezia, other Genitourinary: denies: dysuria, frequency, incontinence, hematuria, retention, other Musculoskeletal: denies: neck pain, shoulder pain, arm pain, back pain, hand pain, leg pain, foot pain, other Skin: denies: rash, lesions, dax, bruising, other Neurological: reports: confusion - Medication Medications: Active Medications Generic Name Dose Route Start Last Admin Trade Name Freq PRN Reason Stop Dose Admin Amlodipine Besylate 10 mg 02/27/20 09:00 02/27/20 09:04 Norvasc PO 10 mg DAILY DWIGHT Administration Aspirin 81 mg 02/25/20 09:00 02/27/20 09:04 Ecotrin PO 81 mg DAILY DWIGHT Administration Atorvastatin Calcium 40 mg 02/24/20 21:00 02/26/20 21:46 Lipitor PO 40 mg HS DWIGHT Administration Enoxaparin Sodium 40 mg 02/25/20 09:00 02/27/20 09:14 Lovenox SC Not Given 09 DWIGHT Gabapentin 600 mg 02/26/20 21:00 02/27/20 09:04 Neurontin PO 600 mg TID DWIGHT Administration Hydrochlorothiazide 12.5 mg 02/27/20 09:00 02/27/20 09:04 Hydrochlorothiazide PO 12.5 mg DAILY DWIGHT Administration Lisinopril 20 mg 02/27/20 09:00 02/27/20 09:04 Zestril PO 20 mg DAILY DWIGHT Administration Metoprolol Tartrate 25 mg 02/27/20 09:00 02/27/20 09:04 Lopressor PO 25 mg DAILY DWIGHT Administration Phenytoin Sodium 330 mg 02/25/20 21:00 02/26/20 21:46 Dilantin PO 330 mg HS DWIGHT Administration - Exam General Appearance: awake alert Eye: PERRL ENT: normocephalic atraumatic Neck: supple Heart: RRR Respiratory: CTAB Gastrointestinal: soft Extremities: no cyanosis Skin: normal turgor Neurological: cranial nerve grossly intact, normal sensation to touch, no weakness, no focal deficits, no new deficit Musculoskeletal: normal tone, normal strength, no muscle wasting Psychiatric: normal affect, normal behavior, A&O x 3, oriented to person, oriented to place, oriented to time Hosp A/P (1) Seizure disorder Code(s): G40.909 - EPILEPSY, UNSP, NOT INTRACTABLE, WITHOUT STATUS EPILEPTICUS Status: Acute (2) Syncope Code(s): R55 - SYNCOPE AND COLLAPSE Status: Acute (3) Hyponatremia Code(s): E87.1 - HYPO-OSMOLALITY AND HYPONATREMIA Status: Acute (4) Chest pain Code(s): R07.9 - CHEST PAIN, UNSPECIFIED Status: Acute Qualifiers: Chest pain type: chest pain due to myocardial ischemia Ischemic chest pain type: unspecified angina pectoris type Qualified Code(s): I25.9 - Chronic ischemic heart disease, unspecified (5) Hypertensive urgency Code(s): I10 - ESSENTIAL (PRIMARY) HYPERTENSION Status: Acute (6) Anemia Code(s): D64.9 - ANEMIA, UNSPECIFIED Status: Chronic Qualifiers: Anemia type: unspecified type Qualified Code(s): D64.9 - Anemia, unspecified (7) Epilepsy Code(s): G40.909 - EPILEPSY, UNSP, NOT INTRACTABLE, WITHOUT STATUS EPILEPTICUS Status: Chronic (8) Hypertension Code(s): I10 - ESSENTIAL (PRIMARY) HYPERTENSION Status: Chronic Qualifiers: Hypertension type: essential hypertension Qualified Code(s): I10 - Essential (primary) hypertension - Plan PT/OT, DVT proph w/SCDs 59 yo M with hypertension, hyperlipidemia and epilepsy for 8 years here with episode of pre-syncope while [place] was [place] the local park. Most likely syncope since no tongue bite, urinary incontinence and orthostatics were positive. Dilantin levels subtherapeutic on admission. Dilantin increased to 330 mg qhs. MRI brain reviewed which showed no acute intracranial findings CTA of neck neg for significant stenosis EEG ongoing. Will follow up on read. Observe seizure and fall precations. Neurochecks every 4 hours. Echo showed EF 50-55%, moderate systolic anterior motion of anterior leaflet Cardiac cath scheduled today. Continue home medications. Continue medical management per primary team.
[2020-02-27] MEDS ORDERED: Sodium Chloride 0.9% 200 ML IV PRN (13:13)
[2020-02-27] MEDS ORDERED: Acetaminophen/Codeine 30-300mg Tablet PO PRN ×2 (13:13)
[2020-02-27] MEDS ORDERED: Nitroglycerin 0.4 MG TAB (25 Tab Bottle) SL PRN (13:13)
[2020-02-27] MEDS ORDERED: Sodium Chloride 0.9% 1,000 ML IV SCH (13:15)
[2020-02-27 13:46] VITALS: TEMP 98.2
[2020-02-27 15:22] VITALS: BP 146/66
--- NOTE | 2020-02-27 16:04 | EEG ---
Referring Physician: Elizabeth GARCIA EEG # [id number] TEST TYPE: EXTENDED CONTINUOUS VIDEO EEG RECORDING REPORT: This EEG was performed using 24 channel [employer] video digital EEG machine with 24 disc electrodes. This was an extended 1 hour 23 minutes of inpatient video EEG recording. Digital analysis of the EEG was done for spike and seizure detection which revealed no abnormalities. BACKGROUND: The posterior background rhythm is 9-10 hertz. The background rhythm attenuates with eye opening and enhances with eye closure. HYPERVENTILATION: No significance response seen with hyperventilation. PHOTIC STIMULATION: Bioccipital symmetric driving response is observed. SLEEP: Drowsiness and brief sleep was observed. EEG DIAGNOSIS: NORMAL AWAKE DROWSY AND SLEEP EEG. 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
--- NOTE | 2020-02-28 08:21 | DIS ---
DATE OF ADMISSION: 02/24/2020 DATE OF DISCHARGE: 02/27/2020 RESIDENT: Sue Delgado DO ADMITTING ATTENDING: Marisela Jenkins MD DISCHARGE ATTENDING: Jj Wood MD CONSULTS: 1. Cardiology, Dr. Asher and Dr. House. 2. Neurology, Dr. Nicole. PROCEDURES: 1. CTA of head and neck on February 24, 2020: No hemodynamically significant stenosis involving the arterial structures of the neck. No saccular aneurysm, high-grade stenosis, or vascular occlusion of the intracranial arterial structures seen. There is incidental finding of multilevel cervical spine disk space narrowing with anterior osteophyte formation and bilateral facet hypertrophy. There is partially calcified atherosclerotic plaque involving the distal CCA and proximal ICA bilaterally. 2. Chest x-ray on February 24, 2020: No acute process. 3. Brain CT on February 24, 2020: No acute intracranial abnormalities. 4. Brain MRI on February 25, 2020: No acute intracranial process. Mild chronic ischemic white matter changes. Questionable area of high T2 signal in the superior left petrous medially noted adjacent to the clivus on the left. This probably represents mucosal edema and a petrous air cell. This signal abnormality does appear to show enhancement on postcontrast images. CT of the sinuses is recommended to assess this region further. 5. Stress test on February 25, 2020, with Cardiology. Area of some mild ischemic change involving the anterior wall near the apex. 6. Echocardiogram on February 26, 2020: Left ventricular size is mildly increased. Ejection fraction is visually estimated at 50%-55%. Left atrium mildly dilated. Mild mitral regurgitation is present. Moderate systolic anterior motion of anterior leaflet. Aortic valve is sclerotic. Moderate aortic regurgitation. Mild tricuspid regurgitation. 7. Cardiac cath on February 27, 2020, with Dr. House: Normal, no significant findings. 8. EEG on February 27, 2020, with Dr. Nicole: Normal awake, drowsy, and sleep EEG. PRIMARY DIAGNOSES: 1. Hyponatremia. 2. Syncopal episode. SECONDARY DIAGNOSES: 1. History of seizures. 2. Cerebrovascular accident, ruled out. 3. Chest pain, ruled out acute coronary syndrome. 4. Hypertension. 5. Hyperlipidemia. DISCHARGE MEDICATIONS: 1. Aspirin 81 mg p.o. daily. 2. Amlodipine 10 mg p.o. daily. 3. Metoprolol tartrate 25 mg p.o. daily. 4. Hydrochlorothiazide 12.5 mg p.o. daily. 5. Atorvastatin 20 mg p.o. daily. 6. Gabapentin 600 mg p.o. t.i.d. 7. Tizanidine 4 mg p.o. t.i.d. p.r.n. 8. Lisinopril 20 mg p.o. daily. 9. Phenytoin (Dilantin) 330 mg p.o. at bedtime. DISCONTINUED MEDICATIONS: Increase dosing of Dilantin from 100 mg p.o. t.i.d. to 330 mg p.o. at bedtime. HISTORY OF PRESENT ILLNESS/HOSPITAL COURSE: The patient is a 59-year-old male with past medical history of hypertension, hyperlipidemia, and seizures, who presented to [facility] Emergency Department on February 24, 2020, [place]. The patient reported that he felt dizzy and almost passed out. The patient's friend witnessed the episode and told the patient that he saw his eyes roll back in his head, denied any tongue biting or involuntary urination. The patient reports he has been drinking plenty of water. He did have some blurry vision right before the episode. Denied any convulsing. Did feel like his heart was racing during the episode. The patient's last seizure was 4 years ago. The patient stated that he was taking his home Dilantin dose of 100 mg t.i.d. In the emergency department, the patient was given 1 g of Dilantin and 1 L of normal saline. His labs were remarkable for an undetectable Dilantin level and a sodium of 123. The patient was admitted to observation on the stroke unit for a CVA rule out versus new seizure activity. The patient's imaging studies were ultimately found to be relatively normal. His MRI of the head, CTA of head and neck, and CT head were all negative for any acute pathology. Essentially, a CVA was ruled out. His orthostatics were positive. Neurology, Dr. Nicole was consulted. She recommended increasing the patient's Dilantin dosing to 330 mg p.o. at bedtime. The patient's episode was thought to likely be more of a presyncope episode, less likely to be a seizure or stroke. Dr. Nicole did complete an EEG which was normal. Additionally, during this admission, the patient had a stress test completed due to his initial complaint of chest pain. The stress test showed mild ischemic changes in the anterior wall near the apex. At that point, Cardiology was consulted, Dr. Asher, who planned for the patient to have a cardiac cath performed on February [address] House. This catheterization was reportedly normal. The patient had an echo completed which showed an EF of 50% to 55%, see results above. On the afternoon of February 27, 2020, both Cardiology and Neurology signed off on the patient. He was deemed stable for discharge back to home. The only medication change made during this admission was increasing his Dilantin dosing as above. DISPOSITION: Stable. DISCHARGE INSTRUCTIONS: 1. Location: Home. 2. Diet: Heart healthy. 3. Activity: As tolerated. 4. Follow up with Dr. Harmon, PCP at [facility] in 2 to 3 days. 5. Follow up with Dr. House in 2 weeks. Job ID: [id number] MTDD
== END 2020-02-27 19:13 | disposition home or self-care (01) ==
LOC: ERS 14:08 → 2SE 17:05
PROVIDERS: ADMIT Family Medicine; ATTEND Family Medicine
PROC: 4A023N7 Measurement of Cardiac Sampling and Pressure, Left Heart, Percutaneous Approach (ICD-10-PCS; principal; 2020-02-27)
PROC: B2111ZZ Fluoroscopy of Multiple Coronary Arteries using Low Osmolar Contrast (ICD-10-PCS; 2020-02-27)
DX: R55 Syncope and collapse (principal); R07.9 Chest pain, unspecified; I10 Essential (primary) hypertension; I25.9 Chronic ischemic heart disease, unspecified; E87.1 Hypo-osmolality and hyponatremia; E78.5 Hyperlipidemia, unspecified; G40.909 Epilepsy, unspecified, not intractable, without status epilepticus; E78.00 Pure hypercholesterolemia, unspecified; Z79.82 Long term (current) use of aspirin; Z79.899 Other long term (current) drug therapy
CPT/HCPCS: 36415; 70450; 70496; 70498; 70553; 71045; 76942; 78452; 80048; 80053; 80061; 80185; 80306; 81003; 81015; 83036; 84443; 84484; 85007; 85025; 85027; 93005; 93017; 93306; 93454; 94760; 95816; 95819; 96361; 96372; 96374; A9500; A9579; C1760; G0378; J0153; J1644; J1650; Q2009; Q9967

== ENCOUNTER 2020-08-22 05:41 | Observation (INO) | payer OTHER ==
[2020-08-21 10:32] VITALS: BMI 25.7
[2020-08-22] MEDS ORDERED: SUGAMMADEX SODIUM 200 MG/2 ML VIAL ONE (06:44)
[2020-08-22] MEDS ORDERED: Fentanyl 100 MCG/2 ML VIAL ONE ×4 (06:44→11:07)
[2020-08-22] MEDS ORDERED: HYDROmorphone 2 MG/ML VIAL SLOW IVP PRN (08:54)
[2020-08-22] MEDS ORDERED: Meperidine HCl/PF 25 MG/ML VIAL SLOW IVP PRN (08:54)
[2020-08-22] MEDS ORDERED: Morphine Sulfate 2 MG/ML SYRINGE SLOW IVP PRN (08:54)
[2020-08-22] MEDS ORDERED: Ondansetron HCl/PF 4 MG/2 ML Vial IVP PRN (08:54)
[2020-08-22] MEDS ORDERED: Promethazine HCl 25 MG/ML VIAL SLOW IVP PRN (08:54)
[2020-08-22] MEDS ORDERED: PACU-Morphine 4MG/ML VIAL SLOW IVP PRN (08:54)
[2020-08-22] MEDS ORDERED: Promethazine HCl 25 MG/ML VIAL IM PRN ×2 (08:54→09:30)
[2020-08-22] MEDS ORDERED: Morphine 2 MG/ML VIAL SLOW IVP PRN (09:30)
[2020-08-22] MEDS ORDERED: Ondansetron PF 4 MG/2 ML Vial IM PRN (09:30)
[2020-08-22] MEDS ORDERED: Acetaminophen/Codeine 30-300mg Tablet PO PRN ×2 (09:30)
[2020-08-22] MEDS ORDERED: tiZANidine HCl 4 MG TAB PO PRN (09:30)
[2020-08-22] MEDS ORDERED: Promethazine 25 MG TAB PO PRN (09:30)
[2020-08-22] MEDS ORDERED: diphenhydrAMINE 50 MG/ML VIAL IVP PRN (09:30)
[2020-08-22] MEDS ORDERED: diphenhydrAMINE 25 MG CAP PO PRN (09:30)
[2020-08-22] MEDS ORDERED: Mag-Al 1200 mg/1200 mg/30 ML UDCUP PO PRN (09:30)
[2020-08-22] MEDS ORDERED: Morphine 4 MG/ML VIAL SLOW IVP PRN (09:30)
[2020-08-22] MEDS ORDERED: Promethazine HCl 12.5 MG SUPP PR PRN (09:30)
[2020-08-22] MEDS ORDERED: traMADol HCl 50 MG TAB PO PRN ×2 (09:30)
[2020-08-22] MEDS ORDERED: PROPOFOL 200 MG/20 ML VIAL ONE (09:57)
[2020-08-22] MEDS ORDERED: Ketorolac Tromethamine 30 MG/ML VIAL ONE (09:57)
[2020-08-22] MEDS ORDERED: Rocuronium Bromide 10 MG/ML (10ML VIAL) ONE (09:57)
[2020-08-22] MEDS ORDERED: Ondansetron PF 4 MG/2 ML Vial ONE (09:57)
[2020-08-22] MEDS ORDERED: Lidocaine 1% PF 5 ML VIAL ONE (09:57)
[2020-08-22] MEDS ORDERED: ePHEDrine 50 MG/ML VIAL ONE (09:57)
[2020-08-22] MEDS ORDERED: Morphine 4 MG/ML VIAL ONE (14:11)
[2020-08-22] MEDS: CEFAZOLIN 2 GM in Premix Bag 1 BAG IVPB SCH ×2 (16:39→21:23)
[2020-08-22] MEDS: Sodium Chloride 0.9% 1,000 ML IV SCH ×2 (17:11→22:21)
[2020-08-22] MEDS: Gabapentin 300 MG CAP PO SCH (21:23)
[2020-08-23] MEDS ORDERED: Tamsulosin HCl 0.4 MG CAP PO SCH (06:00)
--- NOTE | 2020-08-23 06:40 | DIS ---
DATE OF ADMISSION: 08/22/2020 DATE OF DISCHARGE: 08/23/2020 PROCEDURE: L4-L5 and L5-S1 diskectomy and fusion. DISCHARGE SUMMARY: The patient is a 60-year-old male, recently evaluated in our office for progressive back pain. He was found to have degenerative disk disease at L4-L5 and L5-S1. He had failed conservative care. The patient went to the OR and underwent L4-L5 and L5-S1 diskectomy and fusion. Following the surgery, he was transitioned to the Med/Surg floor, where his pain has been well controlled with p.o. medications, he is tolerating a regular diet, and is voiding appropriately. He is ambulating easily in the halls. We will dismiss to home. I have discussed home care precautions. We will follow up with the patient in 2 weeks. CONSTRUCTION CODE ADMINISTRATOR AWARxE checked prior to discharge. He was provided scripts for Keflex as well as Tylenol No. 3 and Zanaflex for home. Job ID: [id number]
--- NOTE | 2020-08-23 07:06 | OP ---
DATE OF PROCEDURE: 08/22/2020 LINUX SYSTEM ADMINISTRATOR: Faustino. PROCEDURES PERFORMED: Right L4-5 and L5-S1 laminectomy, facetectomy, foraminotomy, and diskectomy; interbody arthrodesis; intervertebral biomechanical device; local morselized autograft; demineralized bone matrix; posterolateral arthrodesis; pedicle screw instrumentation, L4 through S1. DESCRIPTION OF PROCEDURE: The patient was brought to the operating room and intubated. He was rolled in a prone position on gel-filled chest rolls. An incision was made exposing L4 through S1 and the level was confirmed by x-ray. We performed a right L4-L5 and right L5-S1 laminectomy, facetectomy, foraminotomy, and diskectomy, completely decompressing the neural elements at these levels. Next, the disks were completely removed and bony endplates decorticated for the purpose of arthrodesis. An appropriately-sized intervertebral biomechanical PEEK device was brought into the field. It was filled with demineralized bone matrix, local morselized autograft, and tapped into place securely at L4-L5 and at L5-S1. Next, pedicle screws were placed at right L4, right L5, and right S1 using lateral fluoroscopic guidance and position was confirmed by x-ray. The nahomi was secured between the screws, connected by nuts, which were final tightened. The wound was then extensively irrigated. MAC hemostasis was secured. A combination of demineralized bone matrix and local morselized autograft was laid over the left lamina and posterolateral surfaces for the purpose of arthrodesis. Vancomycin powder was applied and the wound was closed in anatomic layers. Job ID: [id number]
[2020-08-23] MEDS: Gabapentin 300 MG CAP PO SCH (08:31)
[2020-08-23 08:34] VITALS: BP 128/78
[2020-08-23 08:39] VITALS: TEMP 98.5
[2020-08-23] MEDS ORDERED: Atorvastatin Calcium 20 MG TAB PO SCH (09:00)
[2020-08-23] MEDS ORDERED: Lisinopril 20 MG TAB PO SCH (09:00)
[2020-08-23] MEDS ORDERED: Amlodipine 10 MG TAB PO SCH (09:00)
[2020-08-23] MEDS ORDERED: Hydrochlorothiazide 25 MG TAB PO SCH (09:00)
[2020-08-23] MEDS ORDERED: Metoprolol Tartrate 25 MG TAB PO SCH (09:00)
== END 2020-08-23 10:55 | disposition home or self-care (01) ==
LOC: SDC 05:41 → SURG A 09:23
PROVIDERS: ADMIT Neurological Surgery; ATTEND Neurological Surgery
PROC: 0SG10AJ Fusion of 2 or more Lumbar Vertebral Joints with Interbody Fusion Device, Posterior Approach, Anterior Column, Open Approach (ICD-10-PCS; principal; 2020-08-22)
PROC: 0ST20ZZ Resection of Lumbar Vertebral Disc, Open Approach (ICD-10-PCS; 2020-08-22)
PROC: 0ST40ZZ Resection of Lumbosacral Disc, Open Approach (ICD-10-PCS; 2020-08-22)
DX: M51.16 Intervertebral disc disorders with radiculopathy, lumbar region (principal); M48.061 Spinal stenosis, lumbar region without neurogenic claudication; M51.37 Other intervertebral disc degeneration, lumbosacral region; M48.07 Spinal stenosis, lumbosacral region; I10 Essential (primary) hypertension; G40.909 Epilepsy, unspecified, not intractable, without status epilepticus; Z79.899 Other long term (current) drug therapy
CPT/HCPCS: 76000; 96365; 96366; C1713; C1768; G0378; J0690; J1885; J2270; J2405; J2704; J3010; J3370; J3490

== ENCOUNTER 2020-11-12 14:43 | Emergency (ER) | payer OTHER ==
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
[2020-11-12] MEDS ORDERED: Ketorolac Tromethamine 30 MG/ML VIAL ONE (16:26)
== END 2020-11-12 16:34 | disposition home or self-care (01) ==
LOC: ERS 14:43
DX: S33.9XXA Sprain of unspecified parts of lumbar spine and pelvis, initial encounter (principal); I10 Essential (primary) hypertension; I25.10 Atherosclerotic heart disease of native coronary artery without angina pectoris; E78.5 Hyperlipidemia, unspecified; E78.00 Pure hypercholesterolemia, unspecified; V49.9XXA Car occupant (driver) (passenger) injured in unspecified traffic accident, initial encounter
CPT/HCPCS: 72125; 72128; 72131; 96374; J1885

== ENCOUNTER 2022-06-17 06:00 | Outpatient (CLI) | payer OTHER ==
[2020-08-17 10:01] LABS: Hemoglobin 11.8 g/dL (14.0-18.0); Mean Corpuscular HGB CONC 34.4 G/DL (32.0-36.0); Mean Corpuscular Hemoglobin 31.3 PG (27.0-33.0); Mean Platelet Volume 10.3 fl (7.4-10.4); Platelet Count 238 10x3/uL (130-400); RBC Distribution Width 13.5 % (11.5-14.5); Red Blood Cell (RBC) Count 3.77 10x6/uL (4.40-5.80); White Blood Cell (WBC) Count 6.4 10x3/uL (4.5-11.0)
[2020-08-17 10:07] LABS: Anion Gap 16 mmol/L (10-20); BUN (Urea Nitrogen) 15 mg/dL (8.4-25.7); Calc. Creatinine Clearance 0 mL/min (70-130); Calcium 9.3 mg/dL (7.8-10.44); Carbon Dioxide 24 mmol/L (22-29); Chloride 97 mmol/L (98-107); Glucose 79 mg/dL (70-105); Potassium 4.2 mmol/L (3.5-5.1); Sodium 133 mmol/L (136-145)
[2020-08-18 03:08] LABS: SARS-CoV-2 MS2 Positive; SARS-CoV-2 N Gene Negative; SARS-CoV-2 S Gene Negative; SARS-CoV-2 by NAA Not Detected (NotDetected); SARS-CoV-2 orf1ab Negative
== END 2022-06-17 23:59 | disposition home or self-care (01) ==
LOC: LABBT 06:00
PROVIDERS: ATTEND Neurological Surgery
DX: Z01.818 Encounter for other preprocedural examination (principal); M54.16 Radiculopathy, lumbar region; Z20.822 Contact with and (suspected) exposure to COVID-19
CPT/HCPCS: 80048; 85027; 93005; 93010; U0003